=== PATIENT | male | born 1940 | race Caucasian/White ===

== ENCOUNTER 2019-03-29 17:15 | Observation (INO) ==
[2019-03-29] MEDS ORDERED: 0.9 % Sodium Chloride 1,000 ML IVC ONE (17:19)
[2019-03-29] MEDS ORDERED: Ondansetron 4 MG/2 ML VIAL ONE (17:25)
[2019-03-29] MEDS ORDERED: 0.9 % Sodium Chloride 1,000 ML ONE (17:30)
[2019-03-29] MEDS ORDERED: Isovue-370 500 ML BOTTLE IVP ONE (17:34)
[2019-03-29 17:45] LABS: Basophils # 0.1 K/mcL (0.0-0.2); Basophils % 0.5 %; Eosinophils # 0.3 K/mcL (0.0-0.6); Eosinophils % 2.7 %; Hematocrit 37.6 % (37.5-50.1); Hemoglobin 12.6 g/dL (12.9-16.9); Immature Granulocytes % 2.2 % (0-4); Lymphocytes # 1.5 K/mcL (0.6-4.6); Lymphocytes % 12.4 %; Mean Corpuscular HGB Conc 33.5 g/dL (31.6-35.5); Mean Corpuscular Hemoglobin 32.1 pg (28.0-33.3); Mean Corpuscular Volume 95.9 fL (83.0-100.0); Mean Platelet Volume 9.9 fL (9.4-12.4); Monocytes # 0.7 K/mcL (0.0-1.3); Monocytes % 5.5 %; Neutrophils # 9.2 K/mcL (1.6-8.9); Platelet Count 229 K/mcL (140-400); Red Blood Count 3.92 M/mcL (4.19-5.50); Red Cell Distribution Width 12.4 % (11.5-14.5); Segmented Neutrophils % 76.7 %
[2019-03-29 17:52] LABS: Prothrombin Time 11.4 Seconds (9.4-12.1)
[2019-03-29 17:54] LABS: Activated Partial Thrombo Time 30.1 Seconds (26.0-36.0)
--- NOTE | 2019-03-29 18:29 | Emergency Department Note ---
Disposition Clinical Impression: Altered mental status Qualifiers: Altered mental status type: unspecified Qualified Code(s): R41.82 - Altered mental status, unspecified Disposition: Admitted As Inpatient Condition: Fair Time of Disposition: 23:05 General Adult HPI - General Chief complaint: ED Altered Mental Status Stated complaint: AMS/Unresponsive Time Seen by Provider: 03/29/19 17:19 Source: patient Limitations: altered mental status Nursing Notes Reviewed: Yes Vital Signs Reviewed: Yes - History of Present Illness HPI Narrative: I did see the patient immediately upon arrival and also spoke with the paramedics and the stories that he was sitting on his tractor one son and daughter clearing and treated fallen and then he went to drive his truck into the garage with the garage door was closed and he drove right into the garage door and the paramedics were called and the patient was profusely diaphoretic and was confused to the point that they did put in soft restraints on his wrists however when I saw him he was able to give me some simple answers. He denied any pain in the head or chest or abdomen or back. No numbness or weakness of extremities. 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 The patient does not have any complaints of blood in the urine or stool. I did review his medication list. Social history: Does live alone Pain Scale: 0 - Related Data Home Medications Medication Instructions Recorded Confirmed Aspirin [Ecotrin] 325 mg PO DAILY 03/29/19 03/29/19 Carvedilol 3.125 mg PO BID 03/29/19 03/29/19 Famotidine [Acid Content Strategy Lead] 10 mg PO DAILY PRN 03/29/19 03/29/19 Levothyroxine [Synthroid] 75 mcg PO DAILY 03/29/19 03/29/19 Tamsulosin [Flomax] 0.4 mg PO DAILY 03/29/19 03/29/19 Allergies Allergy/AdvReac Type Severity Reaction Status Date / Time No Known Allergies Allergy Verified 03/29/19 17:58 All systems ED: reviewed and negative except as stated. Past Medical History - Past Medical History Medical history: Reports: coronary artery disease, GERD, hyperlipidemia, hypertension, other - Social History Smoking Status: Unknown if ever smoked Alcohol use: Reports: unknown Drug use: Reports: unknown Physical Exam CONSTITUTIONAL: Alert, initially extremely diaphoretic, pale in appearance, saying the same phrase over that I do not know what is wrong with me but there is no facial asymmetry. He is moving all extremities HEAD: Normocephalic; atraumatic. EYES: PERRL, no scleral icterus. NOSE: The nose is normal in appearance without rhinorrhea RESP: Normal chest excursion with respiration; breath sounds clear and equal bilaterally; no wheezes, rhonchi, or rales CARD: Regular rhythm, without murmurs, rub or gallop ABD: Non-distended; non-tender, soft,without rigidity, rebound or guarding SKIN: Normal for age and race; warm and dry; no apparent lesions NIH stroke scale is 0 and this was done at 6:10 PM when the pt had improved - General Limitations: altered mental status General appearance: other Course Vital Signs Temperature 98.4 F 03/29/19 17:18 Pulse Rate 87 03/29/19 17:18 Respiratory Rate 18 03/29/19 17:18 Blood Pressure 138/100 03/29/19 17:18 O2 Sat by Pulse Oximetry 99 03/29/19 17:18 Temperature 98.3 F 03/29/19 22:44 Pulse Rate 70 03/29/19 22:44 Respiratory Rate 15 03/29/19 22:44 Blood Pressure 149/64 03/29/19 22:44 O2 Sat by Pulse Oximetry 97 03/29/19 22:44 Oxygen Delivery Oxygen Delivery Room Air Medical Decision Making - MDM Narrative Medical decision making narrative: Patient is significantly improved. He did have a scan of the head which was negative. I did a bedside ultrasound of the aorta which showed maximum diameter 2.93 cm and the patient did have the aorta visualized from the subxiphoid area down to the bifurcation in 2 different planes and images were saved. I did see him on multiple occasions. He has significantly improved. Is no longer diaphoretic. He does know the year and the month. He does have a CTA of the chest abdomen and pelvis pending because of this history of possible aortic dissection and surgery for that. I did speak with the family multiple occasions. I have reviewed the patient's EKG showing normal sinus rhythm with some premature atrial contractions and without evidence of ST elevation [place]. I did discuss further with sugar presser who agrees there is no evidence of STEMI. Further results pending. 183 I did discuss the case with the hospitalist who accepts the patient for admission. [id number] - Medical Records Medical records reviewed: Yes I reviewed the patient's medical records. - Lab Data Lab results reviewed: Yes I reviewed the patient's lab results. Result diagrams: 03/29/19 17:19 03/29/19 17:19 Lab Results 03/29/19 03/29/19 03/29/19 Range/Units 17:19 17:19 17:19 WBC 12.0 H (4.3-11.1) K/mcL RBC 3.92 L (4.19-5.50) M/mcL Hgb 12.6 L (12.9-16.9) g/dL Hct 37.6 (37.5-50.1) % MCV 95.9 (83.0-100.0) fL MCH 32.1 (28.0-33.3) pg MCHC 33.5 (31.6-35.5) g/dL RDW 12.4 (11.5-14.5) % Plt Count 229 (140-400) K/mcL MPV 9.9 (9.4-12.4) fL Immature Gran % 2.2 (0-4) % Seg Neutrophils % 76.7 % Lymphocytes % 12.4 % Monocytes % 5.5 % Eosinophils % 2.7 % Basophils % 0.5 % Neutrophils # 9.2 H (1.6-8.9) K/mcL Lymphocytes # 1.5 (0.6-4.6) K/mcL Monocytes # 0.7 (0.0-1.3) K/mcL Eosinophils # 0.3 (0.0-0.6) K/mcL Basophils # 0.1 (0.0-0.2) K/mcL PT 11.4 (9.4-12.1) Seconds INR 1.0 APTT 30.1 (26.0-36.0) Seconds Sodium 139 (136-145) mEq/L Potassium 3.7 (3.5-5.1) mEq/L Chloride 102 (98-107) mEq/L Carbon Dioxide 21 L (23-29) mEq/L BUN 22 (8-23) mg/dL Creatinine 1.44 H (0.70-1.30) mg/dL Est GFR ( Amer) 58 L (> 60) Est GFR (Non-Af Amer) 48 L (> 60) BUN/Creatinine Ratio 15 (6-26) Glucose 222 H (70-105) mg/dL Calculated Osmolality 298 (280-300) Calcium 9.9 (8.6-10.3) mg/dL Total Bilirubin 0.8 (0.3-1.0) mg/dL Direct Bilirubin 0.1 (0.0-0.2) mg/dL Indirect Bilirubin 0.7 (0.0-1.2) mg/dL AST 27 (13-39) Units/L ALT 22 (7-52) Units/L Alkaline Phosphatase 49 (34-104) Units/L Creatine Kinase 84 (30-223) Units/L Troponin I < 0.03 (< 0.04) ng/mL Serum Total Protein 7.8 (6.4-8.9) g/dL Albumin 4.4 (3.5-5.7) g/dL Globulin 3.4 (2.4-3.5) g/dL Albumin/Globulin Ratio 1.3 (1.1-2.2) Ethyl Alcohol < 10 (Less than 10) mg/dL - Radiology Data Radiology results reviewed: Yes I reviewed the patient's radiology results. Critical Care Time Critical Care Time: Yes Total Critical Care Time: 30 Attestation: 30 minutes of critical care time was spent with the patient who arrived here profusely diaphoretic, significantly confused with multiple tests performed and interpreted in discussion with the hospitalist accepts the patient for admission.
[2019-03-29 18:36] LABS: Alanine Aminotransferase 22 Units/L (7-52); Albumin 4.4 g/dL (3.5-5.7); Albumin/Globulin Ratio 1.3 (1.1-2.2); Alkaline Phosphatase 49 Units/L (34-104); Aspartate Amino Transferase 27 Units/L (13-39); BUN/Creatinine Ratio 15 (6-26); Bilirubin,Direct 0.1 mg/dL (0.0-0.2); Bilirubin,Indirect 0.7 mg/dL (0.0-1.2); Bilirubin,Total 0.8 mg/dL (0.3-1.0); Blood Urea Nitrogen 22 mg/dL (8-23); Calcium 9.9 mg/dL (8.6-10.3); Carbon Dioxide 21 mEq/L (23-29); Chloride 102 mEq/L (98-107); Ethanol < 10 mg/dL (Less than 10); Globulin 3.4 g/dL (2.4-3.5); Glucose 222 mg/dL (70-105); Osmolality,Calculated 298 (280-300); Potassium 3.7 mEq/L (3.5-5.1); Sodium 139 mEq/L (136-145); Total Protein 7.8 g/dL (6.4-8.9); Troponin I < 0.03 ng/mL (< 0.04); eGFR For African Americans 58 (> 60); eGFR For Non-African Americans 48 (> 60)
[2019-03-29 18:52] LABS: Creatine Kinase 84 Units/L (30-223)
[2019-03-29 22:32] LABS: Bilirubin,Urine Negative (Negative); Blood,Urine Trace (Negative); Clarity,Urine Clear (Clear); Glucose,Urine (UA) Normal (Normal); Ketones,Urine Trace mg/dL (Negative); Leukocyte Esterase,Urine Negative (Negative); Nitrite,Urine Negative (Negative); Protein,Urine Trace mg/dL (Neg-Trace); Specific Gravity,Urine > 1.030 (1.010-1.025); Urobilinogen,Urine Normal (Normal)
[2019-03-29 22:34] LABS: Bacteria,Urine None Seen per hpf (None-Few); Hyaline Casts,Urine Few per lpf (None-Few); RBC,Urine 0-3 per hpf (0-3); Squamous Epithelial Cell,Urine Moderate per lpf (None-Few); WBC,Urine 0-3 per hpf (0-3)
[2019-03-29 22:35] LABS: Color,Urine Yellow (Yellow)
[2019-03-29 22:39] LABS: Amphetamine Screen,Urine Negative ng/mL (Cutoff=1000); Barbiturate Screen,Urine Negative ng/mL (Cutoff=200); Benzodiazepines Screen,Urine Negative ng/mL (Cutoff=200); Cannabinoid Screen,Urine Negative ng/mL (Cutoff = 50); Cocaine Screen,Urine Negative ng/mL (Cutoff= 300); Opiate Screen,Urine Negative ng/mL (Cutoff=300); Phencyclidine Screen,Urine Negative ng/mL (Cutoff=25)
[2019-03-30] MEDS ORDERED: Naloxone 0.4 MG/ML INJ IVP PRN (01:51)
[2019-03-30] MEDS ORDERED: 0.9 % Sodium Chloride 1,000 ML IVC ONE ×2 (01:53→07:51)
[2019-03-30] MEDS ORDERED: Famotidine 20 MG TABLET PO PRN (03:03)
--- NOTE | 2019-03-30 03:04 | Internal Med History&Physical ---
Date of Encounter: 03/30/19 Time of Encounter: 01:05 Internal Medicine - H&P: HPI Chief complaint: Acute kidney injury Admitted From: Emergency Dept Plans for Post Hospital Care: Home History of present illness: Mr. Bethea is a 78 year old male Patient presented to the emergency room after experiencing a suspected syncopal episode after working out in the sun today. Apparently the patient was driving his truck when he backed into his garage. The patient does not remember the events. He states that he only drank about 1 cup of water for the whole day. He takes medication for his blood pressure as well as prostate. He says he did take an extra dose of his prostate medication, and thinks that the events that occurred earlier are the result of that extra dose of prostate medicine. The ambulance was called and apparently the patient was confused and diaphoretic when they arrived. They had to use restraints because of his confusion. In the emergency room patient's initial vital signs: Temperature 98.4, heart rate 87, respiratory 18, blood pressure 138/100, oxygen saturation 99% on room air. CBC: Significant for slightly elevated white count of 12.0 and hemoglobin of 12.6. BMP: Creatinine 1.44 with a GFR of 48. Electrolytes and liver function tests within normal limits. Blood glucose 222 Troponin: Undetectable Creatine kinase 84 Urinalysis: Increased specific gravity greater than 1.030. Urine tox screen negative Blood alcohol level less than 10 Chest x-ray was negative Head CT was negative for acute intracranial abnormality A CT aortic dissection study was ordered due to the patient's history of aortic aneurysm repair and was negative for acute aortic abnormality. The emergency department gave patient 1 L of IV fluids and admitted the patient to the hospital for further monitoring. Upon my evaluation, patient is resting comfortably in hospital bed in no acute distress. He denies chest pain, bowel pain, nausea, vomiting, diarrhea and constipation. He does have a stutter but this is baseline for him. He states that he is feeling much better, and says that he took an extra dose of his Flomax because he had been having trouble urinating and knows that this medicine helps with those types of symptoms. He normally takes the medicine once every 2 days. He is a full code. Denies significant family medical history. Past Med Surg Social Fam HX - Past Medical History Medical history: coronary artery disease, GERD, hyperlipidemia, hypertension, other Additional medical history: AAA - Social History Smoking Status: Never smoker Alcohol use: none Drug use: unknown Internal Medicine - H&P: Meds Aspirin [Ecotrin] 325 mg PO DAILY 03/29/19 [History] Carvedilol 3.125 mg PO BID 03/29/19 [History] Famotidine [Acid Termite Exterminator Helper] 10 mg PO DAILY PRN 03/29/19 [History] Levothyroxine [Synthroid] 75 mcg PO DAILY 03/29/19 [History] Tamsulosin [Flomax] 0.4 mg PO DAILY 03/29/19 [History] Allergy/AdvReac Type Severity Reaction Status Date / Time No Known Allergies Allergy Verified 03/29/19 17:58 All Systems PM: A 10-system review of systems was performed and is negative for pertinent findings except as documented above in the HPI. - Constitutional Vitals: Temp Pulse Resp BP Pulse Ox 98.1 F 76 16 132/69 99 03/29/19 23:59 03/29/19 23:59 03/29/19 23:59 03/29/19 23:59 03/29/19 23:59 General appearance: Present: cooperative, A&O X 3, pleasant, no acute distress, answers questions appropriately Exam: - - Head Head exam: Present: normal inspection - Eye Eye exam: Present: EOMI, normal appearance - Respiratory Respiratory exam: Present: CTAB. Absent: rales, respiratory distress, rhonchi, wheezes - Cardiovascular Cardiovascular exam: Present: RRR. Absent: diastolic murmur, systolic murmur - GI/Abdominal GI/Abdominal exam: Present: normal bowel sounds, soft. Absent: tenderness - Extremities Exam Extremities exam: Present: warm, radial pulses palpable and symmetrical. Absent: calf tenderness, pedal edema, tenderness - Neurological Exam Neurological exam: Present: no focal deficits, strengths equal and symetr throughout. Absent: motor sensory deficit, facial droop, speech deficit - Skin Skin exam: Present: dry, normal color, warm Internal Med - H&P Results - Labs CBC & Chem 7: 03/29/19 17:19 03/29/19 17:19 Labs: Short CBC 03/29/19 Range/Units 17:19 WBC 12.0 H (4.3-11.1) K/mcL Hgb 12.6 L (12.9-16.9) g/dL Hct 37.6 (37.5-50.1) % Plt Count 229 (140-400) K/mcL Neutrophils # 9.2 H (1.6-8.9) K/mcL BMP 03/29/19 17:19 Sodium 139 Potassium 3.7 Chloride 102 Carbon Dioxide 21 L BUN 22 Creatinine 1.44 H Glucose 222 H Calcium 9.9 Cardiac Enzymes 03/29/19 Range/Units 17:19 Troponin I < 0.03 (< 0.04) ng/mL Liver Function 03/29/19 Range/Units 17:19 Total Bilirubin 0.8 (0.3-1.0) mg/dL Direct Bilirubin 0.1 (0.0-0.2) mg/dL AST 27 (13-39) Units/L ALT 22 (7-52) Units/L Alkaline Phosphatase 49 (34-104) Units/L Albumin 4.4 (3.5-5.7) g/dL Urine 03/29/19 Range/Units 22:11 Urine Color Yellow (Yellow) Urine Clarity Clear (Clear) Urine pH 5.0 (5.0-8.0) pH Units Ur Specific Taylor > 1.030 H (1.010-1.025) Urine Protein Trace (Neg-Trace) mg/dL Urine Glucose (UA) Normal (Normal) mg/dL - Impressions ITS Impressions Chest X-Ray 03/29/19 17:19 IMPRESSION: Negative portable study. D/ / Margot Srinivasan Cha, MD / Margot Srinivasan Cha, MD Interpreting Provider: Margot Srinivasan Cha, MD Head CT 03/29/19 17:20 IMPRESSION: No acute intracranial abnormality. A generalized involutional changes and chronic small vessel ischemic disease. D/ / Valeriano Lewis / Valeriano Lewis Interpreting Provider: Valeriano Lewis Dissection 03/29/19 17:34 IMPRESSION: No acute aortic abnormality identified. Findings compatible with prior ascending aortic repair. No evidence for pulmonary embolism. No acute abnormality identified in the chest, abdomen or pelvis. Mild compression deformity of T5, age indeterminate. D/ / Terry Galvan / Terry Galvan Interpreting Provider: Terry Galvan - Assessment and Plan (1) Acute kidney injury Current Visit: Yes Status: Acute Assessment and plan: Patient has slightly elevated creatinine of 1.44. Creatine kinase was only 84. No previous labs to confirm history of kidney disease. Patient denies history of kidney disease. Likely prerenal due to dehydration. Patient received 1 L of IV fluids in the emergency room. Continue IV fluid hydration Repeat a.m. labs (2) Altered mental status Current Visit: Yes Status: Acute Assessment and plan: Now resolved, patient is fully oriented. Likely symptoms related to dehydration with possible syncopal episode while he was in his car and backed into the garage. This was exacerbated by the extra dose of his BPH medication. Continue to monitor Cardiac monitoring Qualifiers: Altered mental status type: unspecified Qualified Code(s): R41.82 - Altered mental status, unspecified (3) Hyperglycemia Current Visit: Yes Status: Acute Assessment and plan: Patient's blood sugar was 222 on emergency department labs. Patient denies history of diabetes. Check A1c in the morning (4) BPH (benign prostatic hyperplasia) Current Visit: Yes Status: Acute Assessment and plan: Patient states he typically urinates multiple times during the day. He did take an extra dose of his Flomax the morning of his presentation to the ER. He typically only takes it once every 2 days. Hold home meds Qualifiers: Lower urinary tract symptom presence: symptoms present Lower urinary tract symptom detail: urinary frequency Qualified Code(s): N40.1 - Benign prostatic hyperplasia with lower urinary tract symptoms; R35.0 - Frequency of micturition (5) Hypertension Current Visit: Yes Status: Acute Assessment and plan: Patient states he does have a history of hypertension and takes carvedilol. Hold home meds Monitor blood pressures Qualifiers: Hypertension type: essential hypertension Qualified Code(s): I10 - Essential (primary) hypertension (6) DVT prophylaxis Current Visit: Yes Status: Acute Assessment and plan: SCDs - Time Spent With Patient Total time spent is greater than 50% in coordination of care (as documented) at patient's floor/unit and/or counseling patient: Greater than 35 minutes
[2019-03-30 03:18] LABS: Hematocrit 34.3 % (37.5-50.1); Hemoglobin 11.6 g/dL (12.9-16.9); Mean Corpuscular HGB Conc 33.8 g/dL (31.6-35.5); Mean Corpuscular Hemoglobin 32.7 pg (28.0-33.3); Mean Corpuscular Volume 96.6 fL (83.0-100.0); Mean Platelet Volume 9.4 fL (9.4-12.4); Platelet Count 197 K/mcL (140-400); Red Blood Count 3.55 M/mcL (4.19-5.50); Red Cell Distribution Width 12.5 % (11.5-14.5); White Blood Count 10.5 K/mcL (4.3-11.1)
[2019-03-30 03:31] LABS: BUN/Creatinine Ratio 17 (6-26); Blood Urea Nitrogen 19 mg/dL (8-23); Calcium 8.9 mg/dL (8.6-10.3); Carbon Dioxide 25 mEq/L (23-29); Chloride 102 mEq/L (98-107); Glucose 96 mg/dL (70-105); Osmolality,Calculated 286 (280-300); Potassium 3.9 mEq/L (3.5-5.1); Sodium 137 mEq/L (136-145); eGFR For African Americans > 60 (> 60); eGFR For Non-African Americans > 60 (> 60)
[2019-03-30] MEDS: Aspirin Enteric Coated 325 MG Tablet PO SCH (08:38)
--- NOTE | 2019-03-30 09:09 | Event Note ---
Date of Encounter: 03/30/19 Time of Encounter: 09:06 I have seen and evaluated the patient at bedside. H&P, vitals and labs reviewed. Patient reports for the past couple of weeks he has been having worsening urinary symptoms. reports straining and feeling that he cannot completely empty his bladder and he has increased his flomax dose, which he believed contributed to him passing out. today reports supra-pubic abdominal pain. retro-peritoneal us ordered. home antihypertensive medication resumed will continue to follow.
[2019-03-31 03:55] LABS: BUN/Creatinine Ratio 16 (6-26); Blood Urea Nitrogen 18 mg/dL (8-23); Calcium 8.3 mg/dL (8.6-10.3); Carbon Dioxide 24 mEq/L (23-29); Chloride 107 mEq/L (98-107); Glucose 106 mg/dL (70-105); Magnesium 1.9 mg/dL (1.6-2.6); Osmolality,Calculated 286 (280-300); Phosphorous 2.9 mg/dL (2.7-4.5); Potassium 3.8 mEq/L (3.5-5.1); Sodium 137 mEq/L (136-145); eGFR For African Americans > 60 (> 60); eGFR For Non-African Americans > 60 (> 60)
[2019-03-31 06:51] VITALS: BP 97/51
[2019-03-31 08:33] LABS: Estimated Average Glucose 123 mg/dl
--- NOTE | 2019-03-31 08:47 | Discharge Summary ---
Orders not resulted at time of discharge: Pending orders 03/29/19 17:19 ECG 12 lead ECG [ECG] Stat Date of Encounter: 03/31/19 Time of Encounter: 08:41 - Discharge Diagnosis (1) Altered mental status Priority: Primary Status: Resolved Qualifiers: Altered mental status type: unspecified Qualified Code(s): R41.82 - Altered mental status, unspecified (2) Acute kidney injury Priority: Primary Status: Resolved (3) DVT prophylaxis Priority: Secondary Status: Chronic (4) BPH (benign prostatic hyperplasia) Priority: Secondary Status: Chronic Qualifiers: Lower urinary tract symptom presence: symptoms present Lower urinary tract symptom detail: urinary frequency Qualified Code(s): N40.1 - Benign prostatic hyperplasia with lower urinary tract symptoms; R35.0 - Frequency of micturition (5) Hypertension Priority: Secondary Status: Chronic Qualifiers: Hypertension type: essential hypertension Qualified Code(s): I10 - Essential (primary) hypertension (6) Hyperglycemia Priority: Secondary Status: Acute Hospital course: Mr. Bethea is a 78 year old male PMH coronary artery disease, GERD, hyperlipidemia, hypertension, and AAA repair. Patient presented to the emergency room after experiencing a suspected syncopal episode after working out in the sun. Patient reported that he has skipped his prostate medications for a couple of days and the day prior to presenting to the hospital he took some extra doses of tamsulosin and had a near syncope episode and was brought to the hospital. Patient admitted due to syncope, KATHERINE and BHP symptoms. Patient was managed with IV hydration, re-started on his home dose of tamsulosin. A gray catheter was inserted due to urinary retention. Retro peritoneal US: unremarkable for kidney lession. Patient acute symptoms resolved and he is hemodinamically stable to be discharged home. Recommended to follow up with an urologist within a wee of hospital discharge. - Time Spent with Patient Total time spent providing and/or coordinating discharge services: Time spent: Greater than 30 minutes (35) - Discharge Medications Prescriptions: Continued Tamsulosin [Flomax] 0.4 mg PO DAILY Levothyroxine [Synthroid] 75 mcg PO DAILY Famotidine [Acid Wood Veneer Taper] 10 mg PO DAILY PRN PRN Reason: Heartburn Carvedilol 3.125 mg PO BID Aspirin [Ecotrin] 325 mg PO DAILY Home Medications: Aspirin [Ecotrin] 325 mg PO DAILY 03/29/19 [History] Carvedilol 3.125 mg PO BID 03/29/19 [History] Famotidine [Acid Wood Veneer Taper] 10 mg PO DAILY PRN 03/29/19 [History] Levothyroxine [Synthroid] 75 mcg PO DAILY 03/29/19 [History] Tamsulosin [Flomax] 0.4 mg PO DAILY 03/29/19 [History] Allergies/Adverse Reactions: Allergy/AdvReac Type Severity Reaction Status Date / Time No Known Allergies Allergy Verified 03/29/19 17:58 Date of admission: 03/29/19 20:23 Primary care physician: PCP NONE - Constitutional Vitals: Temp Pulse Resp BP Pulse Ox 98.1 F 75 16 97/51 98 03/31/19 06:50 03/31/19 06:50 03/31/19 06:50 03/31/19 06:50 03/31/19 06:50 General appearance: Present: cooperative, A&O X 3, pleasant, no acute distress, answers questions appropriately Exam: Vitals: Reviewed General: Alert and oriented x4. In no distress Cardiovascular: RRR, normal S1 & S2, no rubs, murmurs or gallops. Lungs: CTA b/l, no wheezes or crackles. Abdomen: Soft, non-tender, no rigidity. Extremities: No deformity, no edema or tenderness, no joint swelling or clubbing. Neurological: Normal cognition and motor skills. Rest of the physical exam is non contributory - Patient Status Disposition: Home, Self-Care Condition: Good Functional capacity at discharge: independent ambulation Overall status at discharge: patient is back to baseline - Discharge Instructions Follow Up With: [facility] [Provider Group] (Appt has been requested. ) NONE,PCP [Primary Care Provider] - - Diet and Activity Activity: resume usual activities as tolerated Diet: low salt diet
[2019-03-31] MEDS: Aspirin Enteric Coated 325 MG Tablet PO SCH (08:50)
== END 2019-03-31 16:10 | disposition home or self-care (01) ==
LOC: 3BNU 17:15 → EMEROOARM 17:15 → SUATTDRO 20:23 → 3BNU 21:02
PROVIDERS: ADMIT Pediatrics; ATTEND Internal Medicine